=== PATIENT | male | born 1935 | race Two or more races ===

== ENCOUNTER 2021-11-13 10:15 | Inpatient (IN) | payer OTHER ==
[~2021-11-13] VITALS: Ht 30.5 cm; Wt 5.0 kg
[2021-11-13] MEDS ORDERED: ADULT LOW DOSE81 M1 (12:15)
[2021-11-13] MEDS ORDERED: NASAL MIST126 ML (12:16)
[2021-11-13] MEDS ORDERED: AMLODIPINE-OLM1 EAC2 (12:16)
[2021-11-13] MEDS ORDERED: TERAZOSIN HCL2 M1 (12:17)
[2021-11-13] MEDS ORDERED: LOSARTAN POTAS100 MG (12:17)
[2021-11-13] MEDS ORDERED: SIMVASTATIN PO (12:17)
[2021-11-14] MEDS ORDERED: SIMVASTATIN40 MG (08:34)
[2021-11-14] MEDS ORDERED: FAMOTIDINE40 MG (08:35)
[2021-11-14] MEDS ORDERED: LATANOPROST2.5 ML (08:35)
[2021-11-14] MEDS ORDERED: CALCIUM ANTACI200 MG (08:35)
[2021-11-14] MEDS ORDERED: VITAMIN B-12 51 EACH (08:35)
[2021-11-14] MEDS ORDERED: OMEPRAZOLE40 MG (08:35)
[2021-11-14] MEDS ORDERED: IRON325 MG (08:35)
[2021-11-14] MEDS ORDERED: PROAIR HFA8.5 GM (08:36)
[2021-11-14] MEDS ORDERED: INTESTINEX680 M1 (08:36)
[2021-11-14] MEDS ORDERED: B-121000 MC1 (08:36)
[2021-11-14] MEDS ORDERED: AMLODIPINE BESYL5 MG (08:36)
[2021-11-14] MEDS ORDERED: TAMSULOSIN HCL0.4 MG (08:37)
[2021-11-14] MEDS ORDERED: CLOPIDOGREL BIS75 MG (08:37)
[2021-11-14] MEDS ORDERED: ISOSORBIDE MONO30 M2 (08:37)
[2021-11-14] MEDS ORDERED: CILOSTAZOL100 MG (08:37)
[2021-11-17] MEDS ORDERED: HYDRALAZINE HCL50 MG PO (11:56)
[2021-11-17] MEDS ORDERED: TAMSULOSIN HCL0.4 MG PO (11:56)
[2021-11-17] MEDS ORDERED: TERAZOSIN HCL2 M1 PO (11:56)
[2021-11-17] MEDS ORDERED: POLY119PG PO (11:56)
[2021-11-17] MEDS ORDERED: SIMVASTATIN40 MG PO (11:56)
[2021-11-17] MEDS ORDERED: AMLODIPINE BESY10 MG PO (11:56)
[2021-12-14] MEDS ORDERED: INTESTINEX680 M1 PO (13:12)
== END 2021-12-14 14:28 | disposition home or self-care (01) | DRG 330 ==
LOC: SURH 11-15 09:30 → O/R 12-11 07:36 → SURH 12-11 10:15
PROVIDERS: ADMIT Surgery; ATTEND Surgery
PROC: 0DBB4ZZ Excision of Ileum, Percutaneous Endoscopic Approach (ICD-10-PCS; 2021-12-11)
PROC: 0DTJ4ZZ Resection of Appendix, Percutaneous Endoscopic Approach (ICD-10-PCS; 2021-12-11)
PROC: 0DTH4ZZ Resection of Cecum, Percutaneous Endoscopic Approach (ICD-10-PCS; principal; 2021-12-11 13:45)
DX: K52.89 Other specified noninfective gastroenteritis and colitis (principal); K56.690 Other partial intestinal obstruction; K50.011 Crohn's disease of small intestine with rectal bleeding; K50.012 Crohn's disease of small intestine with intestinal obstruction; K92.2 Gastrointestinal hemorrhage, unspecified; D50.0 Iron deficiency anemia secondary to blood loss (chronic); I11.0 Hypertensive heart disease with heart failure; I50.9 Heart failure, unspecified; E78.5 Hyperlipidemia, unspecified; Z86.16 Personal history of COVID-19

== ENCOUNTER 2021-11-13 16:23 | Inpatient (IN) | payer OTHER ==
[~2021-11-13] VITALS: Ht 180.3 cm; Wt 83.9 kg
[~2021-11-13 16:23] MED LIST: ADULT LOW DOSE81 M1; AMLODIPINE-OLM1 EAC2; LOSARTAN POTAS100 MG; NASAL MIST126 ML; SIMVASTATIN PO; TERAZOSIN HCL2 M1
[2021-11-14] MEDS ORDERED: SIMVASTATIN40 MG (08:34)
[2021-11-14] MEDS ORDERED: OMEPRAZOLE40 MG (08:35)
[2021-11-14] MEDS ORDERED: VITAMIN B-12 51 EACH (08:35)
[2021-11-14] MEDS ORDERED: FAMOTIDINE40 MG (08:35)
[2021-11-14] MEDS ORDERED: CALCIUM ANTACI200 MG (08:35)
[2021-11-14] MEDS ORDERED: LATANOPROST2.5 ML (08:35)
[2021-11-14] MEDS ORDERED: IRON325 MG (08:35)
[2021-11-14] MEDS ORDERED: AMLODIPINE BESYL5 MG (08:36)
[2021-11-14] MEDS ORDERED: PROAIR HFA8.5 GM (08:36)
[2021-11-14] MEDS ORDERED: INTESTINEX680 M1 (08:36)
[2021-11-14] MEDS ORDERED: B-121000 MC1 (08:36)
[2021-11-14] MEDS ORDERED: CILOSTAZOL100 MG (08:37)
[2021-11-14] MEDS ORDERED: TAMSULOSIN HCL0.4 MG (08:37)
[2021-11-14] MEDS ORDERED: ISOSORBIDE MONO30 M2 (08:37)
[2021-11-14] MEDS ORDERED: CLOPIDOGREL BIS75 MG (08:37)
[2021-11-17] MEDS ORDERED: TAMSULOSIN HCL0.4 MG PO (11:56)
[2021-11-17] MEDS ORDERED: TERAZOSIN HCL2 M1 PO (11:56)
[2021-11-17] MEDS ORDERED: SIMVASTATIN40 MG PO (11:56)
[2021-11-17] MEDS ORDERED: AMLODIPINE BESY10 MG PO (11:56)
[2021-11-17] MEDS ORDERED: POLY119PG PO (11:56)
[2021-11-17] MEDS ORDERED: HYDRALAZINE HCL50 MG PO (11:56)
== END 2021-11-17 12:36 | disposition home or self-care (01) | DRG 812 ==
LOC: SURG 16:23
PROVIDERS: ADMIT Surgery; ATTEND Surgery
PROC: 30233N1 Transfusion of Nonautologous Red Blood Cells into Peripheral Vein, Percutaneous Approach (ICD-10-PCS; principal; 2021-11-14)
PROC: 4A12X4Z Monitoring of Cardiac Electrical Activity, External Approach (ICD-10-PCS; 2021-11-14)
PROC: B345ZZZ Ultrasonography of Bilateral Common Carotid Arteries (ICD-10-PCS; 2021-11-14)
PROC: B348ZZZ Ultrasonography of Bilateral Internal Carotid Arteries (ICD-10-PCS; 2021-11-14)
DX: D64.9 Anemia, unspecified (principal); D50.0 Iron deficiency anemia secondary to blood loss (chronic); I48.91 Unspecified atrial fibrillation; E87.5 Hyperkalemia; I11.0 Hypertensive heart disease with heart failure; I25.10 Atherosclerotic heart disease of native coronary artery without angina pectoris; I73.9 Peripheral vascular disease, unspecified; H91.90 Unspecified hearing loss, unspecified ear; E78.5 Hyperlipidemia, unspecified